=== PATIENT | female | born 1975 | race Asian ===

== ENCOUNTER 2021-11-18 09:06 | Day surgery (SDC) | payer OTHER, SELFPAY ==
[2021-11-17 10:26] VITALS: BMI 34.0
--- NOTE | 2021-11-18 09:50 | P.ANESASSM_ITS ---
Pre-Anesthetic Assessment Height/Weight: Height 1.63 m Weight 89.811 kg Preop Diagnosis: Obesity associated with acid reflux and screening colonoscopy Operation Date: 11/18/21 10:00 Proposed Procedures p Colonoscopy 75814/z12.11(Not Applicable) - Bimal Servin MD s EGD [id number]/k21.9(Not Applicable) - Bimal Servin MD Familial anesthetic complications: None Was Beta Esthela taken within 24 hours: N/A Was Clonidine taken within 24 hours: N/A Last intake: > 8 hrs Social No alcohol and No tobacco Exam alert, oriented x 3, clear to auscultation bilaterally and regular rate & rhythm Airway Mallampati: Class III Dentition: full CV/HEM Hypertension Metabolic Thyroid Disease Anesthetic Plan ASA status: 2 Anesthesia: MAC Medications/Allergies Home Medications Medication Instructions Recorded Confirmed Last Taken Type levothyroxine 88 mcg capsule 88 mcg PO QDAY 10/31/19 11/17/21 Unknown History fluticasone propionate 50 1 spray INTRANASAL DAILY 12/30/19 11/17/21 Unknown History mcg/actuation nasal spray,suspension (Flonase Allergy Relief) lisinopril 20 mg tablet 20 mg PO DAILY 11/17/21 11/17/21 Unknown History Allergies Allergy/AdvReac Type Severity Reaction Status Date / Time latex Allergy ALGY-Rash Verified 11/17/21 10:31 [facility] Anesthesia Medical History (Updated 10/16/21 @ 17:03 by Bimal Servin MD) Thyroid disorder Surgical History History of Family History Denies family history of Anesthesia complication Bleeding disorder Social History Smoking and tobacco status: never smoked Alcohol intake: never History of recent travel: No Female Reproductive History Date of last menstrual period: 11/12/21 Data Anesthesia Cardiac Studies: No Data to Display
[2021-11-18 09:55] LABS: OR HCG Qualitative Urine Negative (Negative)
[2021-11-18 10:02] VITALS: BP 175/101; PULSE 81; RESP 16; TEMP 36.5; O2SAT 99
--- NOTE | 2021-11-18 10:09 | W.PM.OPSFHP ---
Same Day Surgery H&P Indication for Procedure/HPI DATE OF PROCEDURE: November 18, 2021 CHIEF COMPLAINT/INDICATIONFOR SURGICAL PROCEDURE: Acid reflux and screening colonoscopy PREOP DIAGNOSIS: Obesity associated with acid reflux and screening colonoscopy PLANNED PROCEDURE: Operation Date: 11/18/21 10:00 Proposed Procedures p Colonoscopy 70173/z12.11(Not Applicable) - Bimal Servin MD s EGD [id number]/k21.9(Not Applicable) - Bimal Servin MD 10/13/2021 This is a pleasant 46 years old female patient with history of obesity and associated medical comorbidities in the form of tension headaches, hypertension, hypothyroidism, and anxiety and depression, back and neck pain.? In addition to acid reflux has been on PPI therapy for more than 6-months.? Patient attempted before to have gastric balloon placement before a few years and it did help her some but thereafter started to regain weight again and now she is currently her BMI around 35 Obesity Class I (30.0-34.9) Medical treatment tried in the form of appetizer suppressants also other measures including but not limited to diet and exercise Previous Bariatric surgery not applicable except for endoluminal bariatric therapy in the form of gastric balloon Quality of life affected and unknown positive way Psychological status and anxiety and depression Patient has been struggling with weight and has tried different modalities without obvious success, patient comes today showing interest in Bariatric surgery as a sustained option for obesity management with special interest in laparoscopic vertical sleeve gastrectomy. Patient reports also history of childhood obesity Support system at home present History of cancer screening age-appropriate is pending in the form of screening colonoscopy, mammography and Pap smear. Interim history 11/18/2021 Patient comes today with the plan for diagnostic EGD and screening colonoscopy. ROS All systems have been reviewed negative except as per the above or per problem list Medications/Allergies* Home Medications Medication Instructions Recorded Confirmed Type levothyroxine 88 mcg capsule 88 mcg PO QDAY 10/31/19 11/17/21 History fluticasone propionate 50 1 spray INTRANASAL DAILY 12/30/19 11/17/21 History mcg/actuation nasal spray,suspension (Flonase Allergy Relief) lisinopril 20 mg tablet 20 mg PO DAILY 11/17/21 11/17/21 History Allergies/Adverse Reactions Allergy/AdvReac Type Severity Reaction Status Date / Time latex Allergy ALGY-Rash Verified 11/18/21 10:10 Pertinent History/Comorbid Conditions* Medical History (Updated 10/16/21 @ 17:03 by Bimal Servin MD) Thyroid disorder Surgical History (Updated 11/01/19 @ 10:39 by Bimal Servin MD) History of Family History (Updated 10/31/19 @ 14:33 by Maya Champion RN) Denies family history of Anesthesia complication Bleeding disorder Social History Smoking and tobacco status: never smoked Alcohol intake: never History of recent travel: No Pertinent Exam Findings alert, oriented x 3, clear to auscultation bilaterally, regular rate & rhythm and procedure specific exam findings (Abdominal examination nontender nondistended soft obese) Recommendations Surgery/Procedure today (EGD and colonoscopy with possible biopsy) Other Plans: Plan of care; After thorough history and physical examination and reviewing the chart, plan to perform a diagnostic esophagogastroduodenoscopy and screening colonoscopy with possible biopsy and possible polypectomy. I discussed with the patient in detail the risks,benefits,alternatives and indications.The risk of aspiration, bleeding, soft tissue injury, perforation of the stomach/esophagus/colon and other potential concomitant complications were explained to the patient in details also the potential need for Thoracotomy and or Laproscoy/Laparotomy to repair any related complications including but not limited to colectomy and or Closotomy. The patient understood this well and did agree to proceed. Rationale was carefully and clearly discussed with the patient.Appropriate informed consent have been reviewed and signed Verbal and written Instructions were given to the patient for colonoscopy prep Coding Level of Care Code Acute Bridge Welder for farrah Johnson
[2021-11-18] MEDS: sodium chloride 0.9% 1,000 ML 30 ML IV (10:12)
[2021-11-18] MEDS: scopolamine 1.5 Patch 1 PATCH TRANSDERMA (10:16)
[2021-11-18 10:45] VITALS: BP 156/103; PULSE 82; RESP 16; TEMP 36.3; O2SAT 100
[2021-11-18 10:59] VITALS: BP 159/103; PULSE 71; RESP 16; O2SAT 99
--- NOTE | 2021-11-18 14:13 | ANE.PACU2 ---
Inpatient post-anesthesia follow up: Airway intact: Yes Vital signs: Temperature 97.3 F Pulse Rate 71 Respiratory Rate 16 Blood Pressure 159/103 Pulse Oximetry 99 Oxygen Delivery Me thod Room Air Oxygen Flow Rate Fraction of Inspir ed Oxygen Hydration adequate: Yes Pain level: 1 Mental status: Baseline
== END 2021-11-18 11:30 | disposition home or self-care (01) ==
PROVIDERS: Anesthesiology; PCP Surgery; Visit Provider Surgery
PROC: 0DJD8ZZ Inspection of Lower Intestinal Tract, Via Natural or Artificial Opening Endoscopic (ICD-10-PCS; CPT 45378; principal; 2021-11-18 10:00)
PROC: 0DJ08ZZ Inspection of Upper Intestinal Tract, Via Natural or Artificial Opening Endoscopic (ICD-10-PCS; CPT 43235; 2021-11-18 10:00)
DX: Z12.11 Encounter for screening for malignant neoplasm of colon (principal); K21.9 Gastro-esophageal reflux disease without esophagitis; Z98.84 Bariatric surgery status; Q27.33 Arteriovenous malformation of digestive system vessel; K29.70 Gastritis, unspecified, without bleeding; E66.9 Obesity, unspecified; Z68.34 Body mass index [BMI] 34.0-34.9, adult; F41.9 Anxiety disorder, unspecified; F32.9 Major depressive disorder, single episode, unspecified; I10 Essential (primary) hypertension
CPT/HCPCS: 43239; 45378; 84703; 88305; 88342; J7030